=== PATIENT | female | born 1995 | race Caucasian/White ===

== ENCOUNTER 2017-03-06 17:49 | Emergency (ER) | payer BC, OTHER ==
--- NOTE | 2017-03-06 20:00 | ERPHSYRPT ---
- History of Present Illness Time Seen by Provider: 03/06/17 19:45 Source: patient Exam Limitations: no limitations Patient Subjective Stated Complaint: pt fell at work. pt stepped back in an open drain about 8 inches down. pt twisted onto the right side falling on the floor. when doing so hit knee and landed on right hand and forearm. pt c/o tingling and numbness in the hand and up the forearm and back and neck pain. Triage Nursing Assessment: pt alert x 3. walked into the ER. Respirations even and unlabored. skin pink warm and dry. no bruises or abrasions noted to the knee arm hand back or neck. Physician History: The patient is a 21-year-old female who complains that she fell yesterday evening while at work at [employer]. She stepped backwards into an open floor drain which caused her to fall onto her right knee, right forearm, and right side. She continued to work last night. Today her right hand and right little finger are hurting significantly. Her knee does not hurt much at all. Her neck does hurt some but mainly on the right side of her neck and upper right back. She took a pain pill that she had from a previous surgery last night with good relief. Today she took ibuprofen twice without much relief. Today she would prefer to have IV Toradol. She is right-handed. Occurred: yesterday Reason for Fall: lost balance, fell from standing pos Injuries/Pain Location: neck, upper extremity, lower extremity Loss of Consciousness: no loss of consciousness Quality: aching Severity of Pain-Max: moderate Severity of Pain-Current: moderate Modifying Factors: Improves With: pain medication Associated Symptoms (Fall): neck pain Allergies/Adverse Reactions: No Known Drug Allergies Allergy (Unverified 07/02/16 20:22) Home Medications: Alprazolam 1 mg [Xanax 1 mg] 1 mg PO TID 03/06/17 [History] Baclofen 10 mg [Lioresal 10 mg] 10 mg PO TID 03/06/17 [History] Dextroamphetamine/Amphetamine [Adderall 20 mg Tablet] 20 mg PO DAILY 03/06/17 [ History] [place]er Carbonate 300 mg PO HS 03/06/17 [History] Quetiapine Fumarate [Seroquel] 150 mg PO HS 03/06/17 [History] Hx Tetanus, Diphtheria Vaccination/Date Given: No Hx Influenza Vaccination/Date Given: Yes Hx Pneumococcal Vaccination/Date Given: No Immunizations Up to Date: Yes - Review of Systems Constitutional: No Fever, No Chills Eyes: No Symptoms Ears, Nose, & Throat: No Symptoms Respiratory: No Cough, No Dyspnea Cardiac: No Chest Pain, No Edema, No Syncope Abdominal/Gastrointestinal: No Abdominal Pain, No Nausea, No Vomiting, No Diarrhea Musculoskeletal: Fall, Injury Skin: No Rash Neurological: No Dizziness, No Focal Weakness, No Sensory Changes Psychological: No Symptoms Endocrine: No Symptoms Hematologic/Lymphatic: No Symptoms Immunological/Allergic: No Symptoms All Other Systems: Reviewed and Negative - Past Medical History Pertinent Past Medical History: No Neurological History: No Pertinent History ENT History: No Pertinent History Cardiac History: No Pertinent History Respiratory History: No Pertinent History Endocrine Medical History: No Pertinent History Musculoskeletal History: Other GI Medical History: Other History: No Pertinent History Psycho-Social History: Anxiety, Attention Deficit Disorder, Depression Female Reproductive Disorders: No Pertinent History Other Medical History: chronic back pain - Past Surgical History Past Surgical History: Yes Neuro Surgical History: No Pertinent History Cardiac: No Pertinent History Respiratory: No Pertinent History Gastrointestinal: No Pertinent History Genitourinary: No Pertinent History Musculoskeletal: Orthopedic Surgery Female Surgical History: No Pertinent History Other Surgical History: left finger surgery. - Social History Smoking Status: Current every day smoker How long have you smoked: 1 Exposure to second hand smoke: Yes Drug Use: marijuana Patient Lives Alone: No - Female History Hx Last Menstrual Period: 12/13/2016 - Nursing Vital Signs Nursing Vital Signs: Initial Vital Signs Pulse Rate 98 Respiratory Rate 18 Blood Pressure [Right Arm] 132/72 Pain Intensity 7 - [place] Coma Score Best Eye Response ([place]): (4) open spontaneously Best Verbal Response ([place]): (5) oriented Best Motor Response ([place]): (6) obeys commands [place] Total: 15 - Physical Exam General Appearance: no apparent distress, alert Head Injury: no evidence of injury Eye Exam: PERRL/EOMI ENT Exam: airway nml Neck Exam: paraspinous muscle tender (right), No stiff neck, No mid-line tenderness Respiratory/Chest Exam: normal breath sounds, No chest tenderness, No respiratory distress Cardiovascular Exam: normal heart sounds, regular rate/rhythm Gastrointestinal Exam: soft, No tenderness, No distention, No guarding, No ecchymosis Rectal Exam: not done Back Exam: muscle spasm (right trapezius) Extremity Exam: normal inspection, normal range of motion, pelvis stable, tenderness (right wrist and right little finger), No deformities Neurologic Exam: alert, oriented x 3, cooperative, sensation nml, No motor deficits Skin Exam: normal color, warm, dry SpO2 Interpretation: normal SpO2: 97 Oxygen Delivery: Room Air - Radiology Exams Right Hand X-ray Interpretation: Interpreted by me, Negative, No Fracture C-Spine X-ray Interpretation: Interpreted by me, Negative, No Fracture, Nml Alignment Ordered Tests: Active Orders 24 hr Category Date Time Status IV Insertion STAT Care 03/06/17 20:04 Active CERVICAL SPINE (2 OR 3 VIEW) Stat Exams 03/06/17 20:07 Taken HAND (MINIMUM 3 VIEWS) Stat Exams 03/06/17 20:06 Taken HCG,QUALITATIVE SERUM Stat Lab 03/06/17 20:25 Completed Medication Summary Discontinued Medications Generic Name Dose Route Start Last Admin Trade Name Arturo PRN Reason Stop Dose Admin Ketorolac Tromethamine 30 mg 03/06/17 20:04 03/06/17 20:17 Toradol 30 Mg Injection IV 03/06/17 20:05 30 mg STAT ONE Administration Ketorolac Tromethamine Confirm 03/06/17 20:11 Toradol 30 Mg Injection Administered 03/06/17 20:12 Dose 30 mg .ROUTE .STK-MED ONE - Progress Progress: improved Counseled pt/family regarding: rad results - Departure Time of Disposition: 21:17 Departure Disposition: Home Clinical Impression: Multiple contusions Condition: Stable Critical Care Time: No Additional Instructions: You have multiple contusions as result of the fall at work. Your x-rays were normal. You were given Toradol 30 mg IV in the ER. You may take naproxen 500 mg twice a day as needed for pain. You were given a work excuse for today and tomorrow and the next day. Follow-up as needed. Prescriptions: Naproxen 500 mg PO BID PRN #20 tablet.
[2017-03-06] MEDS ORDERED: TORAdol 30 mg Injection IV ONE (20:04)
[2017-03-06] MEDS ORDERED: TORAdol 30 mg Injection ONE (20:11)
[2017-03-06 21:32] VITALS: BP 124/62; PULSE 60; O2SAT 98
--- NOTE | 2017-03-06 21:48 | XRAY ---
Indication: Pain following fall. Comparison: None 3 views of the right hand obtained. No bony, articular, or soft tissue abnormalities.
--- NOTE | 2017-03-06 21:49 | XRAY ---
Indication: Pain following fall. Comparison: None 3 views of the cervical spine demonstrates normal alignment with disc spaces preserved. No acute fracture, subluxation, or soft tissue abnormalities. Impression: Negative cervical spine.
== END 2017-03-06 21:32 | disposition home or self-care (01) ==
LOC: ED 17:49
DX: M25.561 Pain in right knee (principal); S50.11XA Contusion of right forearm, initial encounter; S60.221A Contusion of right hand, initial encounter; W01.0XXA Fall on same level from slipping, tripping and stumbling without subsequent striking against object, initial encounter; Y92.512 Supermarket, store or market as the place of occurrence of the external cause; Y99.0 Civilian activity done for income or pay
CPT/HCPCS: 36000; 72040; 73130; 84703; 96374; 99284; J1885